=== PATIENT | male | born 1955 | race Native Hawaiian/Other Pacific Islander ===

== ENCOUNTER → 2016-12-18 | Outpatient (CLI) | payer BC ==
--- NOTE | 2016-12-18 16:23 | NM ---
EXAMINATION TYPE: NM bone/joint limited DATE OF EXAM: 12/18/2016 COMPARISON: No recent plain film available for comparison, exam correlated to plain film dated 009 HISTORY: Effusion right foot, right foot pain medial aspect great toe TECHNIQUE: After the intravenous administration of 24.8 mCi Tc 99m MDP. Images acquired 3 hours pos t injection. Multiple views of feet are submitted. Abnormal increased uptake present at the level of the metatarsophalangeal joint of the first digit of right foot. Uptake is otherwise symmetric within the feet. IMPRESSION: Findings could be due to arthropathy, correlate to exclude trauma, infection
== END | disposition home or self-care (01) ==
LOC: RADNMMAIN 09:53
PROVIDERS: ATTEND Family Medicine
DX: M25.474 Effusion, right foot (principal)
CPT/HCPCS: 78300; A9503

== ENCOUNTER → 2016-12-27 | Outpatient (CLI) | payer BC ==
--- NOTE | 2016-12-28 13:23 | NM ---
EXAMINATION TYPE: NM WBC limited DATE OF EXAM: 12/28/2016 COMPARISON: bone scan 12/18/2016 HISTORY: Pain right foot TECHNIQUE: Following administration of 15.2 mCi Tc99m Ceretec. Images obtained 4 hours FINDINGS: Exam is limited due to the bilateral feet. No suspicious focal uptake is evident. Abnormal uptake at the first metatarsophalangeal joint space i s identified and is white blood cell scan. IMPRESSION: Normal white blood cell scan. No evidence for abnormal tracer activity bilateral feet.
== END ==
LOC: RADNMMAIN 07:08
PROVIDERS: ATTEND Family Medicine
DX: M79.671 Pain in right foot (principal)
CPT/HCPCS: 78805; A9521

== ENCOUNTER → 2019-03-12 | Outpatient (CLI) | payer BC ==
--- NOTE | 2019-03-12 09:12 | US ---
EXAMINATION TYPE: US prostate transrectal DATE OF EXAM: 03/12/2019 COMPARISON: NONE CLINICAL HISTORY: R97.20 ELEVATED PROSTATE SPECIFIC ANTIGEN. Elevated PSA This examination was performed using the transrectal probe. EXAM MEASUREMENTS: Gland Size: 3.5 x 2.4 x 3.8cm Volume: 17.1ml Predicted PSA: 2.1 Actual PSA (if available):3.6 From 2017 Initial images of the seminal vesicles are felt within normal limits. Prostate gland overall measures within normal limits in size with slight heterogeneity of the transitional zone. In the left aspect transitional zone anteriorly there is a 4 mm hyperechoic nodule mid to basilar level. IMPRESSION: Normal size prostate without suspicious peripheral zone or hypoechoic nodule. Given disc ordance of calculated PSA versus actual PSA, advise urology referral to consider ultrasound-guided ra ndom sampling. Predicted PSA = volume x 0.12 ng/ml Calculated Volume = 0.5236 x L x W x H
== END | disposition home or self-care (01) ==
LOC: RADUSWWP 08:02
PROVIDERS: ATTEND Family Medicine
DX: R97.20 Elevated prostate specific antigen [PSA] (principal)
CPT/HCPCS: 76872

== ENCOUNTER → 2021-09-11 | Outpatient (CLI) | payer MEDICARE ==
--- NOTE | 2021-09-13 11:04 | ECHOF ---
Referral Reason:R06.00 Dyspnea MEASUREMENTS -------- HEIGHT: 167.6 cm WEIGHT: 102.1 kg BP: IVSd: 1.1 cm (0.6 - 1.1) LVIDd: 4.0 cm (3.9 - 5.3) LVPWd: 1.3 cm (0.6 - 1.1) EDV(Teich): 69 ml IVSs: 1.9 cm LVIDs: 2.0 cm LVPWs: 1.8 cm %IVS Thck: 74 % ESV(Teich): 13 ml EF(Teich): 82 % %FS: 50 % SV(Teich): 57 ml RVIDd: 3.4 cm (< 3.3) LALs A4C: 4.2 cm LAAs A4C: 12.3 cm LAESV A-L A4C: 30 ml LAESV MOD A4C: 28 ml LALs A2C: 6.2 cm LAAs A2C: 22.6 cm LAESV A-L A2C: 70 ml LAESV MOD A2C: 67 ml LAESV(A-L): 56 ml LAESV Index (A-L): 26.54 ml/m Ao Diam: 3.3 cm (2.0 - 3.7) LA Diam: 4.4 cm (2.7 - 3.8) AV Cusp: 2.2 cm (1.5 - 2.6) EPSS: 0.5 cm MV E Gee: 0.63 m/s MV DecT: 202 ms MV Dec Gilliam: 3.1 m/s MV A Gee: 0.76 m/s MV E/A Ratio: 0.82 MV PHT: 59 ms LVOT Vmax: 0.82 m/s LVOT maxP.69 mmHg AV Vmax: 1.48 m/s AV maxP.74 mmHg AR Vmax: 4.65 m/s AR maxP.37 mmHg AR PHT: 572 ms AR Dec Time: 1972 ms AR Dec Gilliam: 2.4 m/s TR Vmax: 2.90 m/s TR maxP.53 mmHg RAP: 5.00 mmHg RVSP: 38.53 mmHg MV EF SLOPE: 132.56 mm/s (70 - 150) MV EXCURSION: 18.16 mm (> 18.000) FINDINGS -------- Sinus rhythm. This was a technically adequate study. The left ventricular size is normal. There is mild concentric left ventricular hypertrophy. Overa ll left ventricular systolic function is normal with, an EF between 55 - 60 %. The right ventricle is mildly enlarged. Normal LA size by volume 22+/-6 ml/m2. The right atrial size is normal. Interatrial and interventricular septum intact. Trace to mild aortic regurgitation. There is no evidence of aortic stenosis. Mild mitral regurgitation is present. Mild tricuspid regurgitation present. There is borderline pulmonary artery hypertension. The [facility] t ventricular systolic pressure, as measured by Doppler, is 38.53mmHg. There is no pulmonic regurgitation present. The aortic root size is normal. IVC Not well visulized. There is no pericardial effusion. CONCLUSIONS -------- 1. The left ventricular size is normal. 2. There is mild concentric left ventricular hypertrophy. 3. Overall left ventricular systolic function is normal with, an EF between 55 - 60 %. 4. The right ventricle is mildly enlarged. 5. Trace to mild aortic regurgitation. 6. Mild mitral regurgitation is present. 7. Mild tricuspid regurgitation present. 8. There is borderline pulmonary artery hypertension. 9. The right ventricular systolic pressure, as measured by Doppler, is 38.53mmHg. BREWERY PUMPER: Flaca Araujo RDCS
== END | disposition home or self-care (01) ==
LOC: RADECHMAIN 11:51
PROVIDERS: ATTEND Nurse Practitioner Adult Health
DX: I35.1 Nonrheumatic aortic (valve) insufficiency (principal); I34.0 Nonrheumatic mitral (valve) insufficiency; I07.1 Rheumatic tricuspid insufficiency
CPT/HCPCS: 93306

== ENCOUNTER → 2021-10-20 | Outpatient (CLI) | payer MEDICARE ==
[~2021-10-20] MED LIST: DOBUTamine DRIP for NUC MED 500 MG in DEXTROSE/WATER 1 250ML.BAG IV PRN; DOBUTamine DRIP for NUC MED 500 MG/250 ML BAG IV ONE
--- NOTE | 2021-10-26 08:50 | CA ---
Dobutamine Stress Echocardiogram Report Caesar Marquis Age: 65 Gender: M : 1955 Exam Date: 10/20/2021 10:14 Exam Location: [facility] Ordering Physician: Tomas Julian MD Referring Physician: Silvia Meyer Drafting Technician: Francie Spain RDCS Technologist: Ht (in): 66 Wt (lb): 220 Procedure CPT: Indication: R06.00 Dyspnea ICD-9 Codes: Rhythm: Patient History: Atypical angina Cardiac Medications: Omaprazole and Rovastatin Medications in past 24 hours: Contrast: Lumason Total Dose (mL): Stress Results Protocol: Dobutamine Peak Dose (g/kg/min): 30 Duration (min:sec): Atropine:(mg) Target HR: 131 Double Product: Resting HR: 71 Resting BP: 118 / 80 Peak HR: 134 Peak BP: 152 / 76 Max Predicted HR: 154 87 % Max Predicted HR Stress Summary: BP Response: Reason for Termination: Exceeded target heart rate (85% max predicted) Cardiac Symptoms: ECG Analysis Resting EKG: Stress EKG: Arrhythmia: Echo Analysis Base Echo Analysis: Low Echo Anaylsis: Peak Echo Analysis: Recovery Echo: MEASUREMENTS (Male/Female) Normal Values CONCLUSIONS Baseline EKG revealed normal sinus rhythm without significant ST-T changes. With the dobutamine administration as per protocol the heart rate went up to 133 bpm which is above 85% of his predicted maximal. As the heart rate increased there was upsloping ST segment depression noted without any associated symptoms of angina. The system start of the positive dobutamine stress test by EKG criteria without subjective symptoms of angina. However this could be a false-positive finding also Baseline echo images were suboptimal and therefore echo contrast was used. Resting echo images suggested ejection fraction in the low end of normal without any wall motion abnormality. With dobutamine administration as per protocol that was progressive increase in contractility normal. Suggesting that there is no evidence of dobutamine-induced ischemia on this study. There was good contractility with significant enhancement involving all segments. This is a negative dobutamine stress echocardiogram. Abnormal EKG with dobutamine administration suggestive ischemia could be false-positive Normal dobutamine stress echocardiogram without evidence of ischemia. Dr. Lorraine Nelson MD (Electronically Signed) Final Date: 26 October 2021 08:48
== END | disposition home or self-care (01) ==
LOC: RADNMMAIN 09:51
PROVIDERS: ATTEND Family Medicine
DX: R06.00 Dyspnea, unspecified (principal)
CPT/HCPCS: 93351; J1250; Q9950

== ENCOUNTER → 2024-09-05 | Outpatient (CLI) | payer MEDICARE ==
--- NOTE | 2024-09-05 17:15 | MR ---
EXAMINATION TYPE: MR cervical spine wo/w con DATE OF EXAM: 09/05/2024 3:48 PM COMPARISON: None. CLINICAL INDICATION: Male, 68 years old with history of M47.812 SPONDYLOSIS W/O MYELOPATHY OR RADICUL OPATH; PHH, neck pain for 6 months, left arm pain. TECHNIQUE: Multi planar, multi sequence imaging was performed utilizing: T1-weighted, T2-weighted, an d turbo inversion recovery imaging of the cervical spine. IV Contrast: 9 mL Gadobutrol FINDINGS: Alignment: Reversal of the normal cervical spine lordotic curvature. Multilevel anterior osteophyte f ormation. Minimal retrolisthesis of C4 on C5 and C5 on C6. Mild retrolisthesis of C6 on C7. Bones: Endplate degenerative changes noted throughout the cervical spine. Mild vertebral body height loss at C4, C5 and C6. Discs: Multilevel severe intervertebral disc space loss and severe disc desiccation. C2-C3: Posterior disc osteophyte complex minimally effaces the ventral thecal sac. Mild right and mod erate left neural foraminal narrowing due to facet/uncovertebral hypertrophy. C3-C4: Posterior disc osteophyte complex in combination with facet arthropathy and uncovertebral hype rtrophy causes mild spinal canal stenosis and severe bilateral neural foraminal narrowing, left great er than right. C4-C5: Posterior disc osteophyte complex in combination with facet arthropathy and uncovertebral hype rtrophy causes moderate spinal canal stenosis and severe bilateral neural foraminal narrowing. C5-C6: Posterior disc osteophyte complex eccentric to the right in combination with facet arthropathy and uncovertebral hypertrophy cause severe spinal canal stenosis and severe bilateral neural foramin al narrowing. C6-C7: Posterior disc osteophyte complex in combination with facet arthropathy and uncovertebral hype rtrophy causes severe spinal canal stenosis and moderate to severe bilateral neural foraminal narrowi ng. There is suspected T2 hyperintense spinal cord signal abnormality at this level suggestive of mye lomalacia. C7-T1: Facet arthropathy and uncovertebral hypertrophy without significant spinal canal or neural for aminal stenosis. Other: None. 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 Multilevel severe neural foraminal narrowing at additional levels as above. [facility], Workstation: [id number], 09/05/2024 5:12 PM
== END | disposition home or self-care (01) ==
LOC: RADMRIMAIN 14:32
PROVIDERS: ATTEND Physical Medicine & Rehabilitation
DX: M48.02 Spinal stenosis, cervical region (principal); M47.812 Spondylosis without myelopathy or radiculopathy, cervical region
CPT/HCPCS: 72156; A9585

== ENCOUNTER → 2024-09-12 | Outpatient (CLI) | payer MEDICARE | END | disposition home or self-care (01) | LOC: LABWHC1 10:46 | PROVIDERS: ATTEND Urology | DX: C61 Malignant neoplasm of prostate (principal) | CPT/HCPCS: 36415; 84153 ==

== ENCOUNTER → 2025-01-11 | Outpatient (CLI) | payer MEDICARE | END | disposition home or self-care (01) | LOC: LABWHC1 14:15 | PROVIDERS: ATTEND Urology | DX: C61 Malignant neoplasm of prostate (principal) | CPT/HCPCS: 36415; 84153 ==